=== PATIENT | male | born 1955 | race Caucasian/White ===

== ENCOUNTER → 2017-08-23 | Outpatient (CLI) | payer BC, OTHER ==
[2016-10-24 15:49] VITALS: BP 149/112
--- NOTE | 2017-08-23 10:53 | RAD ---
Indication left hand pain for 2 months. AP oblique and lateral views of the left hand were obtained. No acute bony finding is seen. There are no significant degenerative changes apparent on plain films.
--- NOTE | 2017-08-23 10:55 | RAD ---
Indication pain. No history of injury. AP and lateral views of the right humerus were obtained. No bony abnormality is seen
== END | disposition home or self-care (01) ==
LOC: DXRADRC 10:36
PROVIDERS: ATTEND Physician Assistant Medical
DX: M79.642 Pain in left hand (principal); M79.601 Pain in right arm
CPT/HCPCS: 73060; 73130

== ENCOUNTER → 2018-07-08 | Outpatient (CLI) | payer BC, OTHER ==
[2016-10-24 15:49] VITALS: BP 149/112
--- NOTE | 2018-07-08 10:30 | RAD ---
Carotid doppler ultrasound History: Paresthesia of the skin, left arm and face numbness Multiple grayscale, color, and duplex spectral analysis waveform sonographic images were acquired of the carotid, subclavian, and vertebral arteries. Comparison: None Findings: RIGHT: PSV cm/sec EDV cm/sec Common carotid artery 84 20 Maximal internal carotid artery 85 32 External carotid artery 88 Vertebral artery 28 ICA/CCA ratio 1.01 LEFT: PSV cm/sec EDV cm/sec Common carotid artery 87 23 Maximum internal carotid artery 85 36 External carotid artery 82 Vertebral artery 35 ICA/CCA ratio 0.98 Velocities used to determine stenosis are known to correlate with NASCET angiographic criteria. There is antegrade flow in the bilateral vertebral arteries. There is minimal thickening bilaterally, no significant stenosis demonstrated on grayscale or color images. Impression: 1. There is no evidence of a hemodynamically significant stenosis. Electronically signed by: Tung Gandhi MD (07/08/2018 10:27 AM) [id number]
== END | disposition home or self-care (01) ==
LOC: US 07:51
PROVIDERS: ATTEND Physician Assistant Medical
DX: R20.0 Anesthesia of skin (principal); R20.2 Paresthesia of skin
CPT/HCPCS: 93880

== ENCOUNTER → 2018-11-22 | Outpatient (CLI) | payer BC ==
[2016-10-24 15:49] VITALS: BP 149/112
--- NOTE | 2018-11-22 11:19 | RAD ---
Chest, 2 views, 11/22/2018: HISTORY: Cough Comparison is made to a study from 03/03/2016. The heart is at the upper limits of normal in size. The pulmonary vascularity is normal. No pulmonary infiltrate is seen. There is no evidence of pleural fluid. IMPRESSION: No acute cardiopulmonary abnormality is detected. Electronically signed by: Harrison Messina MD (11/22/2018 11:15 AM) [facility]
== END | disposition home or self-care (01) ==
LOC: PMG 08:46
PROVIDERS: ATTEND Physician Assistant Medical
DX: R05 Cough (principal)
CPT/HCPCS: 71046

== ENCOUNTER 2019-01-03 17:54 | Emergency (ER) | payer BC ==
[~2019-01-03] VITALS: Ht 175.3 cm; Wt 104.3 kg
[2019-01-03] MEDS ORDERED: IV NORMAL SALINE 1,000ML 1,000 ML IV ONE (18:45)
[2019-01-03] MEDS ORDERED: ASPIRIN 81 MG TAB.CHEW PO ONE (19:00)
[2019-01-03] MEDS ORDERED: IOHEXOL 350 MG/ML 100 ML VIAL. IV ONE (19:00)
[2019-01-03 19:35] LABS: BASO % 1 % (0-3); EOS # 0.2 x10^3/uL (0.0-0.7); EOS % 2 % (0-3); HEMATOCRIT 48.8 % (39.0-53.0); HEMOGLOBIN 16.4 g/dL (13.0-17.5); LYMPH # 2.2 x10^3/uL (1.0-4.8); LYMPH % 30 % (24-48); MEAN CORPUSCULAR HEMOGLOBIN 31 pg (25-35); MEAN CORPUSCULAR HGB CONC 34 g/dL (31-37); MEAN CORPUSCULAR VOLUME 93 fL (79-100); MONO # 0.9 x10^3/uL (0.0-1.1); MONO % 13 % (0-9); NEUT # 4.1 x10^3uL (1.8-7.7); NEUT % 55 % (31-73); PLATELET COUNT 183 x10^3/uL (140-400); RED BLOOD COUNT 5.24 x10^6/uL (4.30-5.70); RED CELL DISTRIBUTION WIDTH 13.4 % (11.5-14.5); WHITE BLOOD COUNT 7.4 x10^3/uL (4.0-11.0)
--- NOTE | 2019-01-03 19:45 | RAD ---
PQRS Compliance statement: One or more of the following individualized dose reduction techniques were utilized for this examination: 1. Automated exposure control. 2. Adjustment of the mA and/or kV according to patient size. 3. Use of iterative reconstruction technique. Indication:Omni 350 100cc: PE protocol: Chest pain, cough, congestion, short of air TECHNIQUE: CT angiogram of the chest with IV contrast with multiplanar MIP reformats. COMPARISON:None FINDINGS: Suboptimal PE study due to contrast bolus timing. No central or proximal segmental PE. Evaluation of distal segmental and subsegmental pulmonary arteries is limited. Heart is normal in size. No pericardial or pleural effusion. No enlarged axillary, mediastinal or hilar adenopathy. Bibasilar patchy opacities are seen. Visualized sections through the liver, spleen, gallbladder, pancreas, adrenals and kidneys within normal limits. No suspicious bony lesion. IMPRESSION: 1. Suboptimal PE study due to contrast bolus timing. No central or proximal segmental PE. Evaluation of distal segmental and subsegmental pulmonary arteries is limited. Further evaluation with DVT study recommended. 2. Bibasilar patchy opacities most likely subsegmental atelectasis, less likely pneumonia or aspiration. Electronically signed by: Kermit Tierney DO (01/03/2019 7:42 PM) [facility]
[2019-01-03 19:54] LABS: BACTERIA,URINE FEW /HPF (0-FEW); BILIRUBIN,URINE SMALL (NEG); CLARITY,URINE HAZY; COLOR,URINE AMBER; GLUCOSE,URINE NEG (NEG); NITRITE,URINE NEG (NEG); RBC,URINE OCC /HPF (0-2); SQUAMOUS EPITHELIAL CELL,UR OCC /LPF; UROBILINOGEN,URINE 1 mg/dL (0.2 mg/dL); WBC,URINE OCC /HPF (0-4)
[2019-01-03 19:56] LABS: ALBUMIN 3.6 g/dL (3.4-5.0); ALBUMIN/GLOBULIN RATIO 0.9 (1.0-1.7); CALCIUM 8.8 mg/dL (8.5-10.1); CREATININE 1.2 mg/dL (0.7-1.3); GFR 61.1; MAGNESIUM 1.8 mg/dL (1.8-2.4); POTASSIUM 4.2 mmol/L (3.5-5.1); TOTAL BILIRUBIN 0.8 mg/dL (0.2-1.0); TOTAL PROTEIN 7.5 g/dL (6.4-8.2)
[2019-01-03] MEDS ORDERED: ORPH-16 PO (20:23)
--- NOTE | 2019-01-03 20:23 | PHYS DOC ---
Past History Past Medical History: A-Fib, High Cholesterol, Hypertension Past Surgical History: Other Alcohol Use: Occasionally Drug Use: None Adult General Chief Complaint Chief Complaint: RIB PAIN HPI HPI 63 year old male presents with 2 day history of left lateral rib pain which is worse with deep inspiration. Denies trauma. Patient reports he saw his chiropractor yesterday because he thought a "rib was out" and underwent some adjustment. Reports he subsequently had worsening pain. Reports concern that he might have broken a rib. Denies any other trauma. Denies current cough but was recently treated for pneumonia 2-3 weeks ago. Denies leg swelling or calf tenderness. Denies history of DVT or PE. Denies fever/chills. Denies rash. Review of Systems Review of Systems Constitutional: Denies fever or chills [] Eyes: Denies change in visual acuity, redness, or eye pain [] HENT: Denies nasal congestion or sore throat [] Respiratory: Denies cough or shortness of breath [] Cardiovascular: Reports left lateral chest wall pain, reports pleuritic pain GI: Denies nausea, vomiting, or diarrhea [] : Denies dysuria or hematuria [] Musculoskeletal: Denies back pain or joint pain [] Integument: Denies rash or skin lesions [] Neurologic: Denies headache, focal weakness or sensory changes [] Complete systems were reviewed and found to be within normal limits, except as documented in this note. Current Medications Current Medications Current Medications Medications (Trade) Dose Ordered Sig/Yrn Start Time Stop Time Status Last Admin Dose Admin Aspirin (Children'S Aspirin) 243 mg 1X ONCE 01/03/19 19:00 01/03/19 19:01 DC 01/03/19 19:21 243 MG Fentanyl Citrate (Fentanyl 2ml Vial) 25 mcg 1X ONCE 01/03/19 19:00 01/03/19 19:01 DC 01/03/19 19:20 25 MCG Iohexol (Omnipaque 350 Mg/ml) 100 ml 1X ONCE 01/03/19 19:00 01/03/19 19:01 DC 01/03/19 19:22 100 ML Sodium Chloride 1,000 ml @ 1,000 mls/hr 1X ONCE 01/03/19 18:45 01/03/19 19:44 DC 01/03/19 19:17 1,000 MLS/HR Allergies Allergies Allergies Coded Allergies Type Severity Reaction Last Updated Verified No Known Drug Allergies 10/24/16 No Physical Exam Physical Exam Constitutional: Well developed, well nourished, no acute distress, non-toxic appearance. [] HENT: Normocephalic, atraumatic, oropharynx moist Eyes: PERRL, EOMI, conjunctiva normal, no discharge. [] Neck: Normal range of motion, no tenderness, supple, no stridor. [] Cardiovascular: Heart rate regular rhythm, no murmur [] Lungs & Thorax: Bilateral breath sounds clear to auscultation; diminished at bases; left lateral rib pain on palpation Abdomen: Soft, no tenderness Skin: Warm, dry, no erythema, no rash. [] Back: No tenderness, no CVA tenderness. [] Extremities: No tenderness, ROM intact, no edema. [] Neurologic: Alert and oriented X 3, normal motor function, normal sensory function, no focal deficits noted. [] Psychologic: Affect normal, judgement normal, mood normal. [] Current Patient Data Vital Signs Vital Signs Date Time Temp Pulse Resp B/P (MAP) Pulse Ox O2 Delivery O2 Flow Rate FiO2 01/03/19 19:47 69 20 128/84 (99) 94 Nasal Cannula 01/03/19 18:10 98.1 Lab Results Laboratory Tests Test 01/03/19 18:50 01/03/19 19:13 Urine Collection Type Unknown Urine Color Yazmin Urine Clarity Hazy Urine pH 6.5 Urine Specific [place] 1.020 Urine Protein Trace (NEG-TRACE) Urine Glucose (UA) Neg mg/dL (NEG) Urine Ketones (Stick) Trace mg/dL (NEG) Urine Blood Neg (NEG) Urine Nitrite Neg (NEG) Urine Bilirubin Small (NEG) Urine Urobilinogen Dipstick 1 mg/dL (0.2 mg/dL) Urine Leukocyte Esterase Neg (NEG) Urine RBC Occ /HPF (0-2) Urine WBC Occ /HPF (0-4) Urine Squamous Epithelial Cells Occ /LPF Urine Bacteria Few /HPF (0-FEW) Urine Mucus Mod /LPF White Blood Count 7.4 x10^3/uL (4.0-11.0) Red Blood Count 5.24 x10^6/uL (4.30-5.70) Hemoglobin 16.4 g/dL (13.0-17.5) Hematocrit 48.8 % (39.0-53.0) Mean Corpuscular Volume 93 fL (79-100) Mean Corpuscular Hemoglobin 31 pg (25-35) Mean Corpuscular Hemoglobin Concent 34 g/dL (31-37) Red Cell Distribution Width 13.4 % (11.5-14.5) Platelet Count 183 x10^3/uL (140-400) Neutrophils (%) (Auto) 55 % (31-73) Lymphocytes (%) (Auto) 30 % (24-48) Monocytes (%) (Auto) 13 % (0-9) H Eosinophils (%) (Auto) 2 % (0-3) Basophils (%) (Auto) 1 % (0-3) Neutrophils # (Auto) 4.1 x10^3uL (1.8-7.7) Lymphocytes # (Auto) 2.2 x10^3/uL (1.0-4.8) Monocytes # (Auto) 0.9 x10^3/uL (0.0-1.1) Eosinophils # (Auto) 0.2 x10^3/uL (0.0-0.7) Basophils # (Auto) 0.0 x10^3/uL (0.0-0.2) Prothrombin Time 9.9 SEC (9.4-11.4) Prothrombin Time INR 1.0 (0.9-1.1) PTT 25 SEC (23-33) Sodium Level 138 mmol/L (136-145) Potassium Level 4.2 mmol/L (3.5-5.1) Chloride Level 103 mmol/L (98-107) Carbon Dioxide Level 28 mmol/L (21-32) Anion Gap 7 (6-14) Blood Urea Nitrogen 20 mg/dL (8-26) Creatinine 1.2 mg/dL (0.7-1.3) Estimated GFR (Cockcroft-Gault) 61.1 BUN/Creatinine Ratio 17 (6-20) Glucose Level 97 mg/dL (70-99) Calcium Level 8.8 mg/dL (8.5-10.1) Magnesium Level 1.8 mg/dL (1.8-2.4) Total Bilirubin 0.8 mg/dL (0.2-1.0) Aspartate Amino Transferase (AST) 25 U/L (15-37) Alanine Aminotransferase (ALT) 29 U/L (16-63) Alkaline Phosphatase 82 U/L (46-116) Creatine Kinase 99 U/L (39-308) Creatine Kinase MB (Mass) 0.8 ng/mL (0.0-3.6) Creatine Kinase MB Relative Index 0.8 % (0-4) Troponin I Quantitative < 0.017 ng/mL (0-0.055) QD-Sat-N-Type Natriuretic Peptide 30 pg/mL (0-124) Total Protein 7.5 g/dL (6.4-8.2) Albumin 3.6 g/dL (3.4-5.0) Albumin/Globulin Ratio 0.9 (1.0-1.7) L Lipase 137 U/L (73-393) EKG EKG @1850 NSR at 75bpm, NO ST elevation, LAFB, t wave inversion III and flat t wave in aVF Radiology/Procedures Radiology/Procedures PROCEDURE: CT ANGIOGRAPHY CHEST PQRS Compliance statement: One or more of the following individualized dose reduction techniques were utilized for this examination: 1. Automated exposure control. 2. Adjustment of the mA and/or kV according to patient size. 3. Use of iterative reconstruction technique. Indication:Omni 350 100cc: PE protocol: Chest pain, cough, congestion, short of air TECHNIQUE: CT angiogram of the chest with IV contrast with multiplanar MIP reformats. COMPARISON:None FINDINGS: Suboptimal PE study due to contrast bolus timing. No central or proximal segmental PE. Evaluation of distal segmental and subsegmental pulmonary arteries is limited. Heart is normal in size. No pericardial or pleural effusion. No enlarged axillary, mediastinal or hilar adenopathy. Bibasilar patchy opacities are seen. Visualized sections through the liver, spleen, gallbladder, pancreas, adrenals and kidneys within normal limits. No suspicious bony lesion. IMPRESSION: 1. Suboptimal PE study due to contrast bolus timing. No central or proximal segmental PE. Evaluation of distal segmental and subsegmental pulmonary arteries is limited. Further evaluation with DVT study recommended. 2. Bibasilar patchy opacities most likely subsegmental atelectasis, less likely pneumonia or aspiration. Electronically signed by: Kermit Tierney DO (01/03/2019 7:42 PM) [facility] Course & Med Decision Making Course & Med Decision Making Pertinent Labs and Imaging studies reviewed. (See chart for details) Patient presents with left lateral chest wall pain which became worse after adjustment by chiropractor. EKG stable. Labs obtained and posted to chart. Troponin WNL. CTA chest obtained without signs of PE however study slightly suboptimal. NO pneumonia, signs of pneumothorax, or rib fracture noted. Some atelectasis noted. Pain addressed with interval improvement. Incentive spirometer with instruction provided. Patient stable for discharge home with outpatient follow-up with PCP. Discussed findings and plan with patient, who acknowledges understanding and agreement. Dragon Disclaimer Dragon Disclaimer This electronic medical record was generated, in whole or in part, using a voice recognition dictation system. Departure Departure: Impression: Primary Impression: Chest wall pain Disposition: HOME, SELF-CARE Condition: STABLE Referrals: ELLEN BARNETT (PCP) Patient Instructions: Chest Wall Pain, [id number], Incentive Spirometer Scripts Orphenadrine Citrate (ORPHENADRINE CITRATE) 100 Mg Tablet.er 1 TAB PO BID PRN for MUSCLE PAIN, #14 TAB 0 Refills Prov: NANCY DAN DO 01/03/19 NANCY DAN DO Jan 03, 2019 20:23
[2019-01-03 20:42] VITALS: BP 128/85
--- NOTE | 2019-01-06 21:45 | EKG ---
[address] [address] Test Date: 2019-01-03 Test Time: 18:50:45 Pat Name: APRIL MATIAS Department: Room: Gender: M Oral Surgery Technician: : [id number] Requested By: NANCY DAN Order Number: [id number] Reading MD: Kwaku Gaines MD Measurements Intervals Wisdom Rate: 75 P: -19 IN: 188 QRS: -34 QRSD: 102 T: -3 QT: 350 QTc: 393 Interpretive Statements SINUS RHYTHM ABNORMAL LEFT AXIS DEVIATION POOR R-WAVE PROGRESSION Electronically Signed On 01-10-2019 10:22:51 FLOOR GRINDER by Kwaku Gaines MD
== END 2019-01-03 20:55 | disposition home or self-care (01) ==
LOC: ER 17:54
DX: R07.81 Pleurodynia (principal); I48.91 Unspecified atrial fibrillation; E78.00 Pure hypercholesterolemia, unspecified; I10 Essential (primary) hypertension; Z79.82 Long term (current) use of aspirin
CPT/HCPCS: 36415; 71275; 80053; 81001; 82553; 83690; 83735; 83880; 84484; 85025; 85610; 85730; 93005; 96374; 99284; J3010; Q9967; J7030

== ENCOUNTER → 2019-04-14 | Outpatient (CLI) | payer BC ==
[~2019-04-14] MED LIST: ORPH-16 PO
--- NOTE | 2019-04-14 09:11 | RAD ---
EXAM: Frontal chest with 3 view right rib series. HISTORY: Right rib pain and coughing. COMPARISON: 11/22/2018. FINDINGS: There are no confluent infiltrates. There is no pneumothorax or pleural effusion. The aorta is tortuous. The heart is not enlarged. There are no displaced right rib fractures. IMPRESSION: 1. No displaced right rib fractures. Electronically signed by: Angy Cotto MD (04/14/2019 9:08 AM) [facility]
== END | disposition home or self-care (01) ==
LOC: PMG 07:47
PROVIDERS: ATTEND Physician Assistant Medical
DX: R07.81 Pleurodynia (principal)
CPT/HCPCS: 71101

== ENCOUNTER → 2019-09-13 | Outpatient (CLI) | payer BC ==
--- NOTE | 2019-09-13 12:33 | RAD ---
EXAM: LEFT KNEE, 3 VIEWS. HISTORY: Left knee and elbow pain. COMPARISON: None. FINDINGS: No fractures are identified. Joint spaces are maintained. There are small osteophytes along the medial compartment. Alignment is normal. There is no joint effusion. IMPRESSION: 1. Minimal medial compartmental osteoarthritis for patient age. Electronically signed by: Angy Cotto MD (09/13/2019 12:30 PM) [facility]
--- NOTE | 2019-09-13 12:34 | RAD ---
EXAM: RIGHT ELBOW 3 VIEWS. HISTORY: Right elbow pain. COMPARISON: None. FINDINGS: Small ossicles along the lateral aspect of the radiocapitellar joint space may represent small loose bodies or calcification/ossification within the radial collateral ligament complex. No fractures are identified. Joint spaces and alignment are maintained. There is no joint effusion. IMPRESSION: 1. Tiny loose bodies versus soft tissue calcification as above. Electronically signed by: Angy Ctoto MD (09/13/2019 12:31 PM) [facility]
== END | disposition home or self-care (01) ==
LOC: PMG 10:34
PROVIDERS: ATTEND Physician Assistant Medical
DX: M17.12 Unilateral primary osteoarthritis, left knee (principal); M25.762 Osteophyte, left knee; M25.521 Pain in right elbow
CPT/HCPCS: 73080; 73562

== ENCOUNTER → 2021-02-28 | Outpatient (CLI) | payer MEDICARE ==
--- NOTE | 2021-02-28 08:22 | RAD ---
EXAM: Left foot, 3 views; right wrist, 3 views. HISTORY: Pain. COMPARISON: None. FINDINGS: Left foot: 3 views of the left foot are obtained. There is no fracture, dislocation or subluxation. T here is minimal degenerative spurring involving the first metatarsal phalangeal joint. There is sligh t flattening of the articular aspect of the second metatarsal head which is likely projectional or de generative. No convincing avascular necrosis is seen. There is a small plantar spur. Right wrist: 3 views the right wrist are obtained. There is no acute fracture, dislocation or subluxa tion. There is a corticated ossicle adjacent to the ulnar styloid. There is also a tiny ossicle along the ventral aspect of the distal radial metaphysis in the lateral projection. There is slight cortic al irregularly along the radial aspect of the lunate which may be projectional or due to a tiny cyst or osteochondral lesion. IMPRESSION: No acute osseous finding. Electronically signed by: Yue Liu MD (02/28/2021 8:20 AM) [id number]
== END ==
LOC: RAD 07:59
PROVIDERS: ATTEND Physician Assistant Medical
DX: M25.531 Pain in right wrist (principal); M79.672 Pain in left foot
CPT/HCPCS: 73110; 73630

== ENCOUNTER → 2021-06-16 | Outpatient (CLI) | payer MEDICARE | LOC: LAB 07:44 | PROVIDERS: ATTEND Internal Medicine Critical Care Medicine | DX: I28.8 Other diseases of pulmonary vessels (principal); I27.21 Secondary pulmonary arterial hypertension; R76.0 Raised antibody titer | CPT/HCPCS: 36415; 83880 ==

== ENCOUNTER → 2021-08-01 | Outpatient (CLI) | payer MEDICARE ==
--- NOTE | 2021-08-01 10:56 | RAD ---
3 views left foot compared to similar exam dated February 28, 2021 for chronic foot pain. FINDINGS: There is no fracture, dislocation, or acute osseous abnormality. There is a peculiar dorsal osteophyte arising from the head of the second metatarsal, which was present on the prior examinatio n, but may be slightly more prominent today. There is associated soft tissue swelling over the dorsal aspect of this region as well, which was not present on the prior examination. Small calcaneal bone spur is also noted. IMPRESSION: 1. No fracture or acute osseous abnormality. 2. New soft tissue swelling over the dorsal aspect of the forefoot, seen best on the lateral view, an d in proximity to the dorsal bone spur arising from the head of the second metatarsal. If there is pa in referable to this location, referral to a surgical manipulative therapy specialist and/or further evaluation with MRI may be of benefit. Electronically signed by: Donnell Mazariegos MD (08/01/2021 10:54 AM) [id number]
--- NOTE | 2021-08-01 12:15 | RAD ---
2 views of the right hip without comparison for chronic right hip pain. FINDINGS: There is no fracture or acute osseous abnormality. Mild degenerative changes are present. N o radiopaque foreign bodies. IMPRESSION: 1. No acute osseous abnormalities. Electronically signed by: Donnell Mazariegos MD (08/01/2021 12:13 PM) [id number]
--- NOTE | 2021-08-01 12:20 | RAD ---
3 views of the bilateral SI joints for sacral hip pain. FINDINGS: There is no fracture or acute osseous abnormality identified. Bilateral SI joints are unrem arkable with no significant degenerative change or periarticular sclerosis. There are phleboliths in the pelvis. There is some chronic sclerosis from the pubic symphysis, with chondrocalcinosis, likely due to chronic osteitis pubis. IMPRESSION: 1. No radiographically discernible abnormalities of the SI joints. 2. Chronic osteitis pubis. Electronically signed by: Donnell Mazariegos MD (08/01/2021 12:18 PM) [email or web address]
== END ==
LOC: RAD 07:46
PROVIDERS: ATTEND Physician Assistant Medical
DX: M86.8X8 Other osteomyelitis, other site (principal); M53.3 Sacrococcygeal disorders, not elsewhere classified; M25.551 Pain in right hip; M79.672 Pain in left foot; R60.9 Edema, unspecified
CPT/HCPCS: 72202; 73502; 73630

== ENCOUNTER → 2021-11-14 | Outpatient (CLI) | payer MEDICARE ==
--- NOTE | 2021-11-14 10:26 | RAD ---
XR KNEE _3 VIEWS_LT 11/14/2021 10:06 AM INDICATION: Chronic left knee pain COMPARISON: None available. TECHNIQUE: 3 views of the left knee are provided. FINDINGS/ IMPRESSION: There may be small knee joint effusion. There is no acute fracture or dislocation. Mild medial femoro tibial joint space narrowing with marginal osteophytosis compatible with mild osteoarthrosis. Bone mi neralization is within normal limits. Regional soft tissues are within normal limits. There is no sof t tissue gas or osseous erosion. No radiopaque foreign body. Electronically signed by: Ginny Reyes MD (11/14/2021 10:24 AM) [id number]
== END ==
LOC: RAD 09:49
PROVIDERS: ATTEND Physician Assistant Medical
DX: M25.862 Other specified joint disorders, left knee (principal); M25.562 Pain in left knee
CPT/HCPCS: 73562

== ENCOUNTER → 2022-03-24 | Outpatient (CLI) | payer MEDICARE ==
--- NOTE | 2022-03-24 14:07 | RAD ---
CT MAXILLOFACIAL WITHOUT CONTRAST DATE: 03/24/2022 7:53 AM INDICATION: HEADACHE, PRESSURE,SINUS PAIN COMPARISON: None. TECHNIQUE: CT images of the paranasal sinuses were obtained without intravenous contrast. Coronal and sagittal reformatted images were performed at a separate workstation and reviewed. One or more of th e following dose reduction techniques were utilized: Automated exposure control (AEC), Adjustment of mA and/or kV according to patient size, Use of iterative reconstruction technique such as ASiR, CT sc an done according to ALARA and image gently/image wisely FINDINGS: The maxillary, ethmoid, and sphenoid sinuses are clear. Frontal sinuses are not pneumatized. No air-f luid levels. No significant mucoperiosteal thickening. The osteomeatal units are patent. Nasal septu m is slightly deviated to the left at the mid portion. Pneumatization of the vertical lamella of the left middle turbinate. The visualized osseous structures are otherwise normal. The visualized orbits and globes are normal. The visualized brain parenchyma is normal in attenuation. IMPRESSION: No evidence of inflammatory sinonasal disease. Electronically signed by: Tung Draper MD (03/24/2022 2:05 PM) [id number]
== END ==
LOC: CT 07:29
PROVIDERS: ATTEND Physician Assistant Medical
DX: J34.2 Deviated nasal septum (principal); R51.9 Headache, unspecified; J34.89 Other specified disorders of nose and nasal sinuses
CPT/HCPCS: 70486